=== PATIENT | male | born 1965 | race Caucasian/White ===

== ENCOUNTER → 2018-11-21 | Outpatient (CLI) | payer OTHER ==
[~2018-11-21] VITALS: Ht 185.4 cm; Wt 90.7 kg
[~2018-11-21] MED LIST: BISACODYL SUPP10 MG RECTAL; FISH OIL 1,0001 EAC1 PO; MILK OF MA2400 MG/10 PO; OXYCONTIN20 M1 PO; PERCOCET PO; PHENERGAN 25 MG25 M1 PO
--- NOTE | ~2018-11-21 | P ---
[facility] [place] [address] PROCEDURE REPORT Name: DELIA BROCK Room #: [facility]#: [id number] Admission: 11/21/18 ������������������ Attend Phys: Delia Perez MD Discharge: ������������������ Date of : 69 Report #: [id number] THIS REPORT FOR: //name// CC: Delia Manzano DATE OF SERVICE: 11/21/2018 BRIEF HISTORY: The patient is a 53-year-old male for his first screening colonoscopy. PREOPERATIVE DIAGNOSIS: Screening colonoscopy. POSTOPERATIVE DIAGNOSIS: Normal screening colonoscopy. MEDICATIONS: Deep sedation with propofol per anesthesia. SPECIMEN: None. ESTIMATED BLOOD LOSS: None. PROCEDURE: Colonoscopy to cecum and terminal ileum. FINDINGS: Prior to propofol sedation, procedure of colonoscopy was discussed with the patient as well as potential risks and its complications. He indicates he understands and desires to proceed. DESCRIPTION OF PROCEDURE: With the patient in left lateral decubitus position, digital examination was completed, which revealed no abnormalities. Subsequently, the Olympus video colonoscope was introduced into the rectum, advanced under direct vision to the cecum. Done with minimal difficulty. The cecum was identified by the ileocecal valve and the appendiceal orifice. I was able to visualize the distal segment of the terminal ileum, which was unremarkable. At that point, the scope was slowly withdrawn and careful circumferential views obtained including retroflexion of the scope in the ascending colon. Upon slow withdrawal of the scope, the prep was good. The mucosa was within normal limits, normal vascular pattern, normal light reflex. As we withdrew the scope, the mucosa was inspected. No neoplastic lesions were seen. He had normal colonic mucosa throughout. No abnormalities were noted upon withdrawal of the scope. The scope was withdrawn in the rectum, no abnormalities were seen. Upon retroflexion, no abnormalities were seen. Scope was withdrawn. The patient tolerated the procedure well. CONDITION OF THE PATIENT UPON DISCHARGE: Following procedure, the patient was drowsy, arousable and conversant and will be discharged home when fully [facility] [address] [place] [address] PROCEDURE REPORT Name: DELAI BROCK Room #: [facility]#: [id number] Admission: 11/21/18 ������������������ Attend Phys: Delia Perez MD Discharge: ������������������ Date of : 69 Report #: [id number] ambulatory. INSTRUCTIONS TO THE PATIENT AND FAMILY AT THE TIME OF DISCHARGE: No neoplastic lesions seen. This is a negative screening colonoscopy. I would suggest a high fiber diet. Also, suggest the patient return in 10 years for average risk screening colonoscopy. This is the patient's first colonoscopy. Withdrawal time from the cecum was 12 minutes 22 seconds. ��������������������������������������������� ���������������������������������������� By: ��������������������������������������������� [id number] Delia Perez MD /nt
== END | disposition home or self-care (01) ==
LOC: GI 06:37
DX: Z12.11 Encounter for screening for malignant neoplasm of colon (principal); Z98.890 Other specified postprocedural states
CPT/HCPCS: 62110; 62900

== ENCOUNTER → 2020-04-19 | Outpatient (CLI) | payer OTHER | LOC: LAB 09:36 | PROVIDERS: ATTEND Internal Medicine | DX: U07.1 COVID-19 (principal) ==